=== PATIENT | male | born 1985 | race Caucasian/White ===

== ENCOUNTER 2016-03-04 05:11 | Emergency (ER) | payer BC, OTHER ==
[~2016-03-04] VITALS: Ht 182.9 cm; Wt 95.5 kg
[~2016-03-04 05:11] MED LIST: FRCT/ PO; HYDR-3983 PO; METOCLOPRAMIDE HCL 10 MG TAB PO SCH; TRAM-10 PO
[2016-03-04 05:17] VITALS: TEMP 36.6; Ht 182.9 cm; Wt 95.5 kg
[2016-03-04] MEDS ORDERED: DiphenhydrAMINE HCL 50 MG/ML VIAL IV STA (05:21)
[2016-03-04] MEDS ORDERED: KETOROLAC TROMETHAMINE 30 MG/ML VIAL IV STA (05:21)
[2016-03-04] MEDS ORDERED: METOCLOPRAMIDE HCL INJ 5 MG/ML 2 ML VIAL IV STA (05:21)
[2016-03-04] MEDS ORDERED: SODIUM CHLORIDE 0.9% 1000ML 1,000 ML IV STA (05:21)
[2016-03-04] MEDS ORDERED: METOCLOPRAMIDE HCL 10 MG TAB PO ONE (05:30)
[2016-03-04] MEDS ORDERED: DIVA500T3 PO (05:32)
[2016-03-04] MEDS ORDERED: PRD/1 PO (05:33)
[2016-03-04] MEDS ORDERED: CHOL1000 PO (05:33)
--- NOTE | 2016-03-04 06:16 | EMERGENCY ROOM VISIT NOTE ---
History First contact with patient: 05:14 Chief Complaint: HEADACHE Stated Complaint: MIGRAINE WITH VOMITING History of Present Illness The patient is a 31 year old male who presents to the Emergency Room with complaints of migraine. Patient saw the [place] neurology last month and started him on depakote and Imitrex. He describes the headache as throbbing, ranging in severity 7 out of 10 throughout the frontal region similar to prior. Normal imaging in the past. Patient denies chest pain, dyspnea, neck stiffness, fever , chills, sore throat, lightheadedness, abdominal pain, diarrhea, dizziness. Headache was slow in onset. No weakness. He tried Imitrex with minimal improvement. Past Medical/Surgical History Medical Problems: (1) Herniated disc (2) Migraines Family History No pertinent family history Social History Smoking Status: Never Smoker Alcohol Use: occasionally Marital Status: Housing Status: lives with significant other Occupation Status: employed Current/Historical Medications Scheduled Cholecalciferol (Vitamin D3), 5,000 UNITS PO DAILY Divalproex Sodium (Depakote Er), 750 MG PO DAILY Prednisone (Prednisone), Unknown Dose PO DIRECTED Scheduled PRN Acetamin/Butalbital/Caffeine (Fioricet), 2 TAB PO BID PRN for Migraine Hydrocodone/Acetaminophen 7.5MG/325MG (Bradford 7.5MG/325MG), 1 TAB PO Q6 PRN for Pain Allergies Coded Allergies: No Known Allergies (Unverified , 03/04/16) Physical Exam Vital Signs Date Time Temp Pulse Resp B/P Pulse Ox O2 Delivery O2 Flow Rate FiO2 03/04/16 05:17 36.6 69 16 139/92 96 Room Air Physical Exam VITALS: Vitals are noted on the nurse's note and reviewed by myself. Vital signs stable. GENERAL:pleasant patient, in no acute distress, nondiaphoretic, well-developed well-nourished. SKIN: The skin was without rashes, erythema, edema, or bruising. There is no tenting of the skin. Capillary reflex less than 2 seconds. HEAD: Normocephalic atraumatic. EARS: External auditory canals clear, tympanic membranes pearly sandhu without erythema or effusion bilaterally. EYES: Pupils equal round and reactive to light and accommodation. Conjunctivae without injection, sclerae without icterus. Extraocular movements intact. NOSE: Patent, turbinates without inflammation or discharge. No sinus tenderness. MOUTH: Mucous membranes moist. Pharynx without erythema or exudate. Uvula midline. Airway patent. Tongue does not deviate. NECK: Supple without nuchal rigidity. No lymphadenopathy. No thyromegaly. Cervical spine is nontender. No JVD. no meningeal signs HEART: Regular rate and rhythm without murmurs gallops or rubs. LUNGS: Clear to auscultation bilaterally without wheezes, rales or rhonchi. No dullness to percussion. No retractions or accessory muscle use. ABDOMEN: Positive bowel sounds x 4. Normal tympanic percussion. Soft, nontender, without masses or organomegaly. Ragsdale sign negative. No guarding or rebound tenderness. MUSCULOSKELETAL: No muscle atrophy, erythema, or edema noted. NEURO: Patient was alert and oriented to person place and time. Normal sensation to light and sharp touch. No focal neurological deficits. Medical Decision & Procedures Medications Administered Medications (Trade) Dose Ordered Sig/Mini Route Start Time Stop Time Status Last Admin Dose Admin Metoclopramide HCl (Reglan Inj) 10 mg NOW STAT IV 03/04/16 05:21 03/04/16 05:22 DC 03/04/16 05:37 10 MG Ketorolac Tromethamine (Toradol Inj) 30 mg NOW STAT IV 03/04/16 05:21 03/04/16 05:23 DC 03/04/16 05:38 30 MG Diphenhydramine HCl 25 mg 25 mg NOW STAT IV 03/04/16 05:21 03/04/16 05:23 DC 03/04/16 05:37 25 MG Sodium Chloride (Nss 1000ml) 1,000 ml @ 999 mls/hr Q1H1M STAT IV 03/04/16 05:21 03/04/16 06:21 03/04/16 05:37 999 MLS/HR ED Course Prior records/ancillary studies reviewed. Additional history obtained from family. Triage Nursing notes reviewed. The patient's history was concerning for headache. Differential diagnosis: Etiologies such as migraine headache, meningitis, sinusitis, CO exposure, ICH, SAH, infection, tumor, headache, sinus thrombosis, arterial dissection, as well as others were entertained. Physical examination findings: As above. Non-focal. ER treatment provided: toradol, reglan, benadryl, NSS On reassessment the patient felt better. Diagnostics interpreted by me: deferred This appears to be consistent with migraine. Patient is a long-standing history of migraines and symptoms seem similar. Patient felt much better after being medicated as above. Patient was advised to rest, stay well-hydrated and follow-up as scheduled with his family care and/or neurologist or here in the ER sooner for headache, fevers, vomiting, worsening signs or symptoms or as needed. Patient had no signs of meningitis on exam. Patient was well- appearing. Headache was slow in onset. By the evaluation outlined above emergent etiologies such as meningitis, sinusitis, CO exposure, ICH, SAH, infection, temporal arteritis, tumor, sinus thrombosis, arterial dissection, as well as others were deemed relatively unlikely. The pt informed about the findings as listed above. All questions were answered and pleased with the treatment. Return instructions were outlined and the patient was discharged in stable condition. Patient was given a home pack of Reglan as he is still awaiting his [facility] of this. Referral: The patient was referred back to their primary care physician for follow-up in 2 to 3 days for a recheck of the current condition. Medical Decision As above Impression Primary Impression: Migraine Departure Information Dispostion Home / Self-Care Condition GOOD Referrals Yessenia Mccracken C.R.NRhinaPRhina (PCP) Patient Instructions A Signature Page, My [facility] Additional Instructions DO NOT drive, drink alcohol, operate machinery, or perform dangerous activities today. You were given medications in the ER that can affect your ability to safely function or operate a vehicle. Rest today in a quiet, peaceful, dark environment and get a full 8-10 hrs of sleep tonight. Avoid loud noises, smoke/smoking, alcohol, bright lights, stress, or physical exertion today to minimize the chance the headache may return. Continue current medications. Ibuprofen(Motrin, Advil) may be used for fever or pain. Use 600mg every six hours as needed. Take with food. Avoid using more than 2400mg in a 24 hour period. Do not use 2400mg per day for more than three consecutive days without physician direction. Prolonged inappropriate use can lead to stomach upset or ulcers. (AND/OR) Acetaminophen(Tylenol) may be used for fever or pain. Use 1000mg every six hours as needed. Avoid using more than 3000mg in a 24 hour period. Return to the ER for passing out, worsening headache, vision problems, neck stiffness/pain, fevers, vomiting, worsening of your condition, or as needed. Follow up with your primary physician and/or a neurologist in 2-3 days for a recheck of your current condition.
[2016-03-04 06:38] VITALS: BP 134/97; PULSE 69; O2SAT 99
== END 2016-03-04 06:40 | disposition home or self-care (01) ==
LOC: C.EDB 05:12 → C.EDA 06:40
DX: G43.909 Migraine, unspecified, not intractable, without status migrainosus (principal); Z79.899 Other long term (current) drug therapy

== ENCOUNTER 2016-03-27 08:09 | Emergency (ER) | payer BC, OTHER ==
[~2016-03-27] VITALS: Ht 182.9 cm; Wt 94.6 kg
[~2016-03-27 08:09] MED LIST changes: +CHOL1000 PO; +DIVA500T3 PO; -METOCLOPRAMIDE HCL 10 MG TAB PO SCH; +PRD/1 PO; -TRAM-10 PO
[2016-03-27 08:17] VITALS: TEMP 36.8; Ht 182.9 cm; Wt 94.6 kg
[2016-03-27] MEDS ORDERED: METO10TA3 PO (08:29)
[2016-03-27] MEDS ORDERED: LDN500 PO (08:29)
[2016-03-27] MEDS ORDERED: SODIUM CHLORIDE 0.9% 1000ML 1,000 ML IV STA (08:44)
[2016-03-27] MEDS ORDERED: PROCHLORPERAZINE 5 MG/ML 2 ML VIAL IV STA (08:44)
[2016-03-27] MEDS ORDERED: KETOROLAC TROMETHAMINE 30 MG/ML VIAL IV STA (08:44)
[2016-03-27] MEDS ORDERED: ONDANSETRON INJ 2 MG/ML 2 ML VIAL IV STA (08:44)
[2016-03-27] MEDS ORDERED: DiphenhydrAMINE HCL 50 MG/ML VIAL IV STA (08:44)
--- NOTE | 2016-03-27 09:00 | EMERGENCY ROOM VISIT NOTE ---
History Report prepared by Deuce: Jd Mendez Under the Supervision of: Dr. Misty Paulino M.D. First contact with patient: 08:31 Chief Complaint: HEADACHE Stated Complaint: MIGRAINE, NAUSEA History of Present Illness The patient is a 31 year old male who presents to the Emergency Room with complaints of episodes of migraine headaches that started last night. He has a history of migraine headaches and usually gets one 2 or 3 times a week. He typically takes Imitrex every time he gets a migraine, but the [place] stopped giving the patient Imitrex recently. The patient had a migraine last night, and woke up with a similar headache this morning. He describes the pain as a sharp pain behind his right eye and he rates the pain as a 6 out of 10 in severity at worst. He has mild light sensitivity. The patient has not used any NSAIDS for these episodes because he was told not to take them since he was using them so frequently in the past. He denies any numbness, tingling, weakness, or vomiting. Source of History: patient Onset: Last night Position: head Symptom Intensity: migraine-like, 6/10 in severity at worst Quality: sharp Timing: other (episodes) Associated Symptoms: No nausea, No numbness (or tingling), No vomiting, No weakness Note: Associated symptoms: Mild light sensitivity. Review of Systems See HPI for pertinent positives & negatives. A total of 10 systems reviewed and were otherwise negative. Past Medical & Surgical Medical Problems: (1) Herniated disc (2) Migraines Family History No pertinent family history Social History Smoking Status: Never Smoker Alcohol Use: occasionally Marital Status: Housing Status: lives with significant other Occupation Status: employed Current/Historical Medications Scheduled Cholecalciferol (Vitamin D3), 5,000 UNITS PO DAILY Divalproex Sodium (Depakote Er), 750 MG PO DAILY Etodolac (Etodolac), 1 TAB PO DAILY Metoclopramide HCl (Metoclopramide HCl), 1 TAB PO DAILY Scheduled PRN Hydrocodone/Acetaminophen 7.5MG/325MG (Adger 7.5MG/325MG), 1 TAB PO Q6 PRN for Pain Ibuprofen (Ibuprofen), 800 TAB PO Q8 PRN for headache Metoclopramide (Reglan), 10 MG PO Q6H PRN for Migraine Allergies Coded Allergies: No Known Allergies (Unverified , 03/04/16) Physical Exam Vital Signs Date Time Temp Pulse Resp B/P Pulse Ox O2 Delivery O2 Flow Rate FiO2 03/27/16 11:21 78 17 134/75 97 03/27/16 11:14 78 17 134/75 97 Room Air 03/27/16 08:17 36.8 80 18 133/86 97 Room Air Physical Exam CONSTITUTIONAL: Mild painful distress. HEENT: No icterus, moist mucous membranes NECK: No meningismus, trachea is midline. CARDIOVASCULAR: Regular rate, normal perfusion RESPIRATORY: Unlabored breathing. Clear to auscultation. GASTROINTESTINAL: Non-tender GENITOURINARY: No flank tenderness MUSCULOSKELETAL: Full range of motion NEUROLOGIC: No acute gross focal deficits. PSYCHIATRIC: Normal affect SKIN: Normal for ethnicity. Medical Decision & Procedures Laboratory Results Test 03/27/16 09:23 Bedside Hemoglobin 15.0 g/dl (14.0-18.0) Bedside Hematocrit 44 % (42-52) Bedside Sodium 142 mEq/L (135-144) Bedside Potassium 4.0 mEq/L (3.3-5.0) Bedside Chloride 100 mEq/L (101-112) Bedside Total CO2 27 mEq/l (24-31) Anion Gap 19.0 mmol/L (16-25) Bedside Blood Urea Nitrogen 11 mg/dl (7-18) Bedside Creatinine 1.0 mg/dl (0.6-1.3) Bedside Glucose (other) 99 mg/dl (70-99) Bedside Ionized Calcium (Aileen) 1.19 mmol/l (1.12-1.32) Labs reviewed by ED physician. Medications Administered Medications (Trade) Dose Ordered Sig/Mini Route Start Time Stop Time Status Last Admin Dose Admin Diphenhydramine HCl (Benadryl Inj) 25 mg NOW STAT IV 03/27/16 08:44 03/27/16 08:50 DC 03/27/16 09:13 25 MG Prochlorperazine Edisylate 10 mg 10 mg NOW STAT IV 03/27/16 08:44 03/27/16 08:50 DC 03/27/16 09:13 10 MG Sodium Chloride (Nss 1000ml) 1,000 ml @ 0 mls/hr Q0M STAT IV 03/27/16 08:44 03/27/16 08:50 DC 03/27/16 09:11 0 MLS/HR Ondansetron HCl (Zofran Inj) 4 mg NOW STAT IV 03/27/16 08:44 03/27/16 08:50 DC 03/27/16 09:12 4 MG Ketorolac Tromethamine (Toradol Inj) 30 mg NOW STAT IV 03/27/16 08:44 03/27/16 08:50 DC 03/27/16 09:13 30 MG ED Course 0835: The medical student evaluated the patient in room A12B. 0844: Ordered Toradol Inj 30 mg IV, Zofran Inj 4 mg IV, NSS 1000 ml @ 0 mls/hr Wide Open IV, Compazine Inj 10 mg IV, Benadryl Inj 25 mg IV. 928: Past medical records reviewed. The patient was evaluated in room A12B. A complete history and physical examination was performed. The patient verbally expressed understanding and agreement of the treatment plan. The patient will be discharged. Medical Decision Differential diagnoses include: migraine. 31-year-old presents into the emergency department for evaluation of migraine headache consistent with prior episodes without focal neurologic deficits. Normally maintained on Imitrex as needed with prior intracranial imaging which is normal. Prior records reviewed and CT noted in 2014. Patient given Compazine, Toradol, Benadryl with resolution of symptoms. Impression Primary Impression: Migraine Scribe Attestation The scribe's documentation has been prepared under my direction and personally reviewed by me in its entirety. I confirm that the note above accurately reflects all work, treatment, procedures, and medical decision making performed by me. Departure Information Dispostion Home / Self-Care Prescriptions Ibuprofen (IBUPROFEN) 200 Mg Cap 800 TAB PO Q8 Y for headache, #20 TAB Prov: Misty Paulino MD 03/27/16 Metoclopramide (Reglan) 10 Mg Tab 10 MG PO Q6H Y for Migraine, #20 TAB Prov: Misty Paulino MD 03/27/16 Referrals No Doctor, Assigned (PCP) Forms HOME CARE DOCUMENTATION FORM, IMPORTANT VISIT INFORMATION Patient Instructions ED Headache Migraine, My [facility]
[2016-03-27 09:43] LABS: ISTAT IONIZED CALCIUM 1.19 mmol/l (1.12-1.32)
[2016-03-27] MEDS ORDERED: METO-157 PO (09:45)
[2016-03-27] MEDS ORDERED: IBUP1CAP9 PO (09:45)
[2016-03-27 11:21] VITALS: BP 134/75; PULSE 78; O2SAT 97
== END 2016-03-27 11:22 | disposition home or self-care (01) ==
LOC: C.EDB 08:12 → C.EDA 11:22
DX: G43.909 Migraine, unspecified, not intractable, without status migrainosus (principal); Z79.899 Other long term (current) drug therapy

== ENCOUNTER 2016-06-03 08:42 | Emergency (ER) | payer BC, OTHER ==
[~2016-06-03] VITALS: Ht 182.9 cm; Wt 92.1 kg
[~2016-06-03 08:42] MED LIST changes: -FRCT/ PO; +IBUP1CAP9 PO; +LDN500 PO; +METO-157 PO; +METO10TA3 PO; -PRD/1 PO
[2016-06-03 08:46] VITALS: TEMP 36.5; Ht 182.9 cm; Wt 92.1 kg
[2016-06-03] MEDS ORDERED: SUMA6INJ (08:54)
[2016-06-03] MEDS ORDERED: DiphenhydrAMINE HCL 50 MG/ML VIAL IV STA (08:59)
[2016-06-03] MEDS ORDERED: ONDANSETRON INJ 2 MG/ML 2 ML VIAL IV STA (08:59)
[2016-06-03] MEDS ORDERED: KETOROLAC TROMETHAMINE 30 MG/ML VIAL IV STA (08:59)
[2016-06-03] MEDS ORDERED: SODIUM CHLORIDE 0.9% 1000ML 2,000 ML IV STA (08:59)
[2016-06-03] MEDS ORDERED: PROCHLORPERAZINE INJ 5 MG in SYRINGE 4 ML IV STA (08:59)
[2016-06-03] MEDS ORDERED: PROCHLORPERAZINE 5 MG/ML 2 ML VIAL ONE (09:14)
[2016-06-03 09:21] LABS: BASO % 0.3 %; BASO ABS # 0.02 K/uL (0-0.2); COMPLETE YES; HEMATOCRIT 45.1 % (42-52); IG% 0.2 %; LYMPH % 26.4 %; LYMPH ABS # 1.66 K/uL (1.2-3.4); MEAN CELL VOLUME 89.8 fL (80-100); MEAN CORPUSCULAR HEMOGLOBIN 31.1 pg (25-34); MEAN CORPUSCULAR HGB CONC 34.6 g/dl (32-36); MEAN PLATELET VOLUME 9.8 fL (7.4-10.4); MONO % 8.3 %; NEUT % 60.8 %; PLATELET COUNT 239 K/uL (130-400); RED BLOOD COUNT 5.02 M/uL (4.7-6.1); WHITE BLOOD COUNT 6.29 K/uL (4.8-10.8)
[2016-06-03 09:38] LABS: BLOOD UREA NITROGEN 11 mg/dl (7-18); BUN/CREATININE RATIO 8.8 (10-20); CARBON DIOXIDE 28 mmol/L (21-32); CHLORIDE 106 mmol/L (98-107); GLUCOSE 139 mg/dl (70-99); POTASSIUM 3.8 mmol/L (3.5-5.1); SODIUM 142 mmol/L (136-145)
--- NOTE | 2016-06-03 09:42 | DIAGNOSTIC IMAGING REPORT ---
HEAD CT NONCONTRAST CT DOSE: 537.48 mGy.cm HISTORY: Headache MENCHACA TECHNIQUE: Multiaxial CT images of the head were performed without the use of intravenous contrast. Comparison: 05/21/2014 Findings: The paranasal sinuses and mastoid air cells are clear. The calvarium and skull base are intact. The ventricles and sulci are within normal limits. There is no mass, hematoma, midline shift, or acute infarct. Impression: No acute intracranial abnormality. Electronically signed by: Manny Rascon M.D. 06/03/2016 9:40 AM Dictated Date/Time: 06/03/2016 9:38 AM
[2016-06-03 09:43] LABS: ALKALINE PHOSPHATASE 56 U/L (45-117); ALT/SGPT 86 U/L (12-78); AST/SGOT 141 U/L (15-37)
[2016-06-03 10:28] VITALS: BP 138/87; PULSE 60; O2SAT 98
--- NOTE | 2016-06-03 14:17 | EMERGENCY ROOM VISIT NOTE ---
History Report prepared by Deuce: Elisabeth Ruvalcaba Under the Supervision of: Dr. Cecilio Foley D.O. First contact with patient: 08:48 Chief Complaint: HEADACHE Stated Complaint: MIGRAINE, FEVER, VOMITING History of Present Illness The patient is a 31 year old male who presents to the Emergency Room with complaints of persistent headache starting 0330 last night. He has a history of migraines. This headache had a gradual onset and is worse than his typical migraine. The pain is present behind his eyes which is typical. He reports sensitivity to light, nausea, vomiting, and diaphoresis. He usually experiences nausea and vomiting with his migraines, but not diaphoresis. He denies any fevers greater than 100.4. Pt denies change in vision, chest pain, shortness of breath, abdominal pain, diarrhea, and pain with urination. No weakness or numbness in his arms or legs. No trouble ambulating. No recent trauma. Source of History: patient Onset: 0330 last night Position: head Quality: ache Timing: other (persistent) Associated Symptoms: + diaphoresis, + nausea, + vomiting, No SOB, No abdominal pain, No chest pain, No diarrhea, No urinary symptoms Note: Pt reports sensitivity to light. Pt denies vision changes. Review of Systems See HPI for pertinent positives & negatives. A total of 10 systems reviewed and were otherwise negative. Past Medical & Surgical Medical Problems: (1) Herniated disc (2) Migraines Family History No pertinent family history Social History Smoking Status: Never Smoker Alcohol Use: occasionally Marital Status: Housing Status: lives with significant other Occupation Status: employed Current/Historical Medications Scheduled Cholecalciferol (Vitamin D3), 5,000 UNITS PO DAILY Divalproex Sodium (Depakote Er), 750 MG PO DAILY Etodolac (Etodolac), 1 TAB PO DAILY Metoclopramide HCl (Metoclopramide HCl), 1 TAB PO DAILY Scheduled PRN Metoclopramide (Reglan), 10 MG PO Q6H PRN for Migraine Miscellaneous Medications Sumatriptan Succinate (Imitrex) Allergies Coded Allergies: No Known Allergies (Unverified , 06/03/16) Physical Exam Vital Signs Date Time Temp Pulse Resp B/P Pulse Ox O2 Delivery O2 Flow Rate FiO2 06/03/16 10:28 60 16 138/87 98 Room Air 4/11/17 08:46 36.5 86 18 149/89 98 Room Air Physical Exam GENERAL: Sitting up in bed, holding right forehead, disheveled, in mild distress. EYE EXAM: normal conjunctiva, PERRL and EOM's intact EARS: TMs clear bilaterally. OROPHARYNX: no exudate, no erythema, lips, buccal mucosa, and tongue normal and mucous membranes are moist NECK: supple, no nuchal rigidity, no adenopathy, non-tender. Negative Brudzinski 's. LUNGS: Clear to auscultation. Normal chest wall mechanics HEART: no murmurs, S1 normal and S2 normal ABDOMEN: abdomen soft, non-tender, normo-active bowel sounds, no masses, no rebound or guarding. BACK: Back is symmetrical on inspection and there is no deformity, no midline tenderness, no CVA tenderness. SKIN: no rashes and no bruising UPPER EXTREMITIES: upper extremities are grossly normal. LOWER EXTREMITIES: No pitting edema. NEURO EXAM: Normal sensorium, cranial nerves II-XII intact, normal speech, no weakness of arms, no weakness of legs. No drift. Finger to nose intact. Gross sensation intact. Medical Decision & Procedures ER Provider Diagnostic Interpretation: Radiology results as stated below per my review and the radiologist's interpretation: HEAD CT NONCONTRAST CT DOSE: 537.48 mGy.cm HISTORY: Headache MENCHACA TECHNIQUE: Multiaxial CT images of the head were performed without the use of intravenous contrast. Comparison: 05/21/2014 Findings: The paranasal sinuses and mastoid air cells are clear. The calvarium and skull base are intact. The ventricles and sulci are within normal limits. There is no mass, hematoma, midline shift, or acute infarct. Impression: No acute intracranial abnormality. Electronically signed by: aMnny Rascon M.D. 06/03/2016 9:40 AM Dictated Date/Time: 06/03/2016 9:38 AM Laboratory Results 06/03/16 09:10 Red Blood Count 5.02, Mean Corpuscular Volume 89.8, Mean Corpuscular Hemoglobin 31.1, Mean Corpuscular Hemoglobin Concent 34.6, Mean Platelet Volume 9.8, Neutrophils (%) (Auto) 60.8, Lymphocytes (%) (Auto) 26.4, Monocytes (%) (Auto) 8.3, Eosinophils (%) (Auto) 4.0, Basophils (%) (Auto) 0.3, Neutrophils # (Auto) 3.83, Lymphocytes # (Auto) 1.66, Monocytes # (Auto) 0.52, Eosinophils # (Auto) 0.25, Basophils # (Auto) 0.02 06/03/16 09:10 Test 06/03/16 09:10 White Blood Count 6.29 K/uL (4.8-10.8) Red Blood Count 5.02 M/uL (4.7-6.1) Hemoglobin 15.6 g/dL (14.0-18.0) Hematocrit 45.1 % (42-52) Mean Corpuscular Volume 89.8 fL (80-100) Mean Corpuscular Hemoglobin 31.1 pg (25-34) Mean Corpuscular Hemoglobin Concent 34.6 g/dl (32-36) Platelet Count 239 K/uL (130-400) Mean Platelet Volume 9.8 fL (7.4-10.4) Neutrophils (%) (Auto) 60.8 % Lymphocytes (%) (Auto) 26.4 % Monocytes (%) (Auto) 8.3 % Eosinophils (%) (Auto) 4.0 % Basophils (%) (Auto) 0.3 % Neutrophils # (Auto) 3.83 K/uL (1.4-6.5) Lymphocytes # (Auto) 1.66 K/uL (1.2-3.4) Monocytes # (Auto) 0.52 K/uL (0.11-0.59) Eosinophils # (Auto) 0.25 K/uL (0-0.5) Basophils # (Auto) 0.02 K/uL (0-0.2) RDW Standard Deviation 42.3 fL (36.4-46.3) RDW Coefficient of Variation 13.0 % (11.5-14.5) Immature Granulocyte % (Auto) 0.2 % Immature Granulocyte # (Auto) 0.01 K/uL (0.00-0.02) Anion Gap 8.0 mmol/L (3-11) Est Creatinine Clear Calc Drug Dose 89.6 ml/min Estimated GFR () 83.7 Estimated GFR (Non- 72.2 BUN/Creatinine Ratio 8.8 (10-20) Calcium Level 9.0 mg/dl (8.5-10.1) Total Bilirubin 0.4 mg/dl (0.2-1) Direct Bilirubin < 0.1 mg/dl (0-0.2) Aspartate Amino Transf (AST/SGOT) 141 U/L (15-37) Alanine Aminotransferase (ALT/SGPT) 86 U/L (12-78) Alkaline Phosphatase 56 U/L (45-117) Total Protein 7.3 gm/dl (6.4-8.2) Albumin 4.0 gm/dl (3.4-5.0) Laboratory results per my review. Medications Administered Medications (Trade) Dose Ordered Sig/Mini Route Start Time Stop Time Status Last Admin Dose Admin Sodium Chloride (Nss 1000ml) 2,000 ml @ 999 mls/hr Q2H1M STAT IV 06/03/16 08:59 06/03/16 10:54 DC 06/03/16 09:12 999 MLS/HR Ondansetron HCl (Zofran Inj) 4 mg NOW STAT IV 06/03/16 08:59 06/03/16 09:07 DC 06/03/16 09:11 4 MG Ketorolac Tromethamine (Toradol Inj) 30 mg NOW STAT IV 06/03/16 08:59 06/03/16 09:07 DC 06/03/16 09:15 30 MG Diphenhydramine HCl (Benadryl Inj) 50 mg NOW STAT IV 06/03/16 08:59 06/03/16 09:07 DC 06/03/16 09:13 50 MG Prochlorperazine Edisylate (Compazine Inj) 10 mg STK-MED ONCE .ROUTE 06/03/16 09:14 06/03/16 09:15 DC 06/03/16 09:12 5 MG ED Course ED COURSE: Vital signs were reviewed and showed normal vitals. The patients medical record was reviewed The above diagnostic studies were performed and reviewed. ED treatments and interventions as stated above. 0851: The patient was evaluated in room A10. A complete history and physical examination was performed. 0859: Benadryl Inj 50 mg IV, Toradol Inj 30 mg IV, Zofran Inj 4 mg IV, NSS 2000 ml @ 999 mls/hr IV. 0914: Compazine Inj 10 mg IV. 1018: Upon reevaluation, the patient's headache has resolved. I discussed my findings with the patient. I discussed the risks and benefits of a lumbar puncture. He understands and declines the lumbar puncture. His at bedside agrees. He understands and agrees with the treatment plan. Based on the patients age, coexisting illnesses, exam and lab findings the decision to treat as an outpatient was made. The patient remained stable while under my care. The patient appeared well at the time of discharge. Medical Decision Differential Diagnosis includes but is not limited to headache, tension headache , cluster headache, migraine, subarachnoid hemorrhage, meningitis, mass, central venous thrombus, concussion, trauma and epidural/subdural hemorrhage. Patient is a 31-year-old male who presents the ER for headache. This came on gradually and progressively worsened. No fevers. He does have a history of migraines but notes that this feels worse. CT head was negative. CBC and BMP were unremarkable. Vitals were unremarkable. He has been afebrile. IV was established and he was given IV Compazine, Benadryl, Toradol and normal saline. He had resolution of his headache. At this time I discussed performing a lumbar puncture to rule out SAH or meningitis although he has no fevers. He declined and both him and his understood the risk and benefits of this. Following this he was discharged to follow-up with his primary care doctor in the next 24 hours. He was discharged following informed refusal of care. Discussed with Pt concerning signs and symptoms to watch out for. Pt was instructed to follow up with their PCP and discussed with the patient their option to return to the ED at anytime for persistent or worsening symptoms. The appropriate anticipatory guidance and out-patient management, including indications for return to the emergency department, were explained at length to the patient and understood. Impression Primary Impression: Headache Additional Impression: Nausea and vomiting Scribe Attestation The scribe's documentation has been prepared under my direction and personally reviewed by me in its entirety. I confirm that the note above accurately reflects all work, treatment, procedures, and medical decision making performed by me. Departure Information Dispostion Home / Self-Care Referrals Yessenia Mccracken C.R.N.P. (PCP) Forms HOME CARE DOCUMENTATION FORM, IMPORTANT VISIT INFORMATION Patient Instructions Headache Pain, My [facility] Additional Instructions Please follow up with your primary care doctor with in the next 24 hours. Any worsening of your symptoms, please return to the ED immediately. This includes weakness or numbness in arms or legs, change in vision, worsening or recurrence of a headache, fevers greater than 100.4 or any other concerning signs or symptoms from your stand point. Please not drive, work, operate heavy machinery for the next 12 hours with the medications given in the ER. Problem Qualifiers Primary Impression: Headache Headache type: unspecified Headache chronicity pattern: acute headache Intractability: not intractable Qualified Codes: R51 - Headache Additional Impression: Nausea and vomiting Vomiting type: unspecified Vomiting Intractability: non-intractable Qualified Codes: R11.2 - Nausea with vomiting, unspecified
== END 2016-06-03 10:33 | disposition home or self-care (01) ==
LOC: C.EDB 08:44 → C.EDA 10:33
DX: R51 Headache (principal); R11.2 Nausea with vomiting, unspecified

== ENCOUNTER 2017-03-04 11:16 | Emergency (ER) | payer OTHER ==
[~2017-03-04] VITALS: Ht 182.9 cm; Wt 100.0 kg
[~2017-03-04 11:16] MED LIST changes: -HYDR-3983 PO; -IBUP1CAP9 PO; -METO-157 PO; +SUMA6INJ
[2017-03-04 11:23] VITALS: TEMP 36.9; Ht 182.9 cm; Wt 100.0 kg
[2017-03-04] MEDS ORDERED: KETOROLAC TROMETHAMINE 60 MG/2 ML VIAL IM STA (11:45)
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
--- NOTE | 2017-03-04 12:26 | DIAGNOSTIC IMAGING REPORT ---
PELVIS 1 OR 2 VIEW ROUTINE CLINICAL HISTORY: bilateral pelvis pain/low back pain pain COMPARISON: None. DISCUSSION: The bones and joint spaces appear intact. There is no evidence of fracture, dislocation or bony disease. There is no evidence for soft tissue swelling. IMPRESSION: Negative study. The above report was generated using voice recognition software. It may contain grammatical, syntax or spelling errors. Electronically signed by: Manny Rascon M.D. 03/04/2017 12:24 PM Dictated Date/Time: 03/04/2017 12:22 PM
[2017-03-04] MEDS ORDERED: BTLAI SC (12:30)
[2017-03-04] MEDS ORDERED: DULO60CA44 PO (12:30)
[2017-03-04] MEDS ORDERED: CHOL400T (12:30)
[2017-03-04] MEDS ORDERED: ONDA4TAB46 PO (12:30)
[2017-03-04] MEDS ORDERED: SUMA6INJ (12:30)
[2017-03-04] MEDS ORDERED: CYCL5TAB PO (12:30)
[2017-03-04] MEDS ORDERED: LEVO25TA PO (12:30)
--- NOTE | 2017-03-04 12:31 | DIAGNOSTIC IMAGING REPORT ---
LUMBAR SPINE 5 VIEWS CLINICAL HISTORY: Low back pain. FINDINGS: 5 views of the lumbar spine are correlated with abdominal CT dated 07/08/2015. The skeletal structures are well mineralized. There is no radiographic evidence of fracture or malalignment. Vertebral body height and alignment are maintained. The transverse and spinous processes are intact. There is no evidence of spondylolysis. The intervertebral disc spaces are well-maintained. The visualized bony pelvis appears intact. There is a nonobstructed abdominal bowel gas pattern. Moderate constipation is observed. IMPRESSION: Unremarkable radiographic evaluation of the lumbosacral spine. Electronically signed by: Ciaran Jones M.D. 03/04/2017 12:30 PM Dictated Date/Time: 03/04/2017 12:29 PM
[2017-03-04] MEDS ORDERED: METH4PAK PO (12:45)
[2017-03-04 12:58] VITALS: BP 148/102; PULSE 107; O2SAT 96
== END 2017-03-04 13:07 | disposition home or self-care (01) ==
LOC: C.EDB 11:18 → C.EDD 13:07
DX: S39.012A Strain of muscle, fascia and tendon of lower back, initial encounter (principal); K59.00 Constipation, unspecified; G43.909 Migraine, unspecified, not intractable, without status migrainosus; E03.9 Hypothyroidism, unspecified; X58.XXXA Exposure to other specified factors, initial encounter

== ENCOUNTER 2017-05-11 10:25 | Emergency (ER) | payer OTHER ==
[~2017-05-11] VITALS: Ht 182.9 cm; Wt 96.1 kg
[~2017-05-11 10:25] MED LIST changes: +BTLAI SC; -CHOL1000 PO; +CHOL400T; +CYCL5TAB PO; -DIVA500T3 PO; +DULO60CA44 PO; -LDN500 PO; +LEVO25TA PO; -METO10TA3 PO; +ONDA4TAB46 PO
[2017-05-11 10:27] VITALS: TEMP 36.7; Ht 182.9 cm; Wt 96.1 kg
[2017-05-11] MEDS ORDERED: PROCHLORPERAZINE 5 MG/ML 2 ML VIAL IV STA (11:30)
[2017-05-11] MEDS ORDERED: SODIUM CHLORIDE 0.9% 1000ML 1,000 ML IV STA (11:30)
[2017-05-11] MEDS ORDERED: ONDANSETRON INJ 2 MG/ML 2 ML VIAL IV STA (11:30)
[2017-05-11] MEDS ORDERED: KETOROLAC TROMETHAMINE 30 MG/ML VIAL IV STA (11:30)
[2017-05-11] MEDS ORDERED: DiphenhydrAMINE HCL 50 MG/ML VIAL IV STA (11:30)
[2017-05-11] MEDS ORDERED: OXYC1TAB3 PO (11:46)
[2017-05-11 12:28] VITALS: BP 131/81; PULSE 84; O2SAT 96
[2017-05-11] MEDS ORDERED: METH4PAK PO (12:44)
--- NOTE | 2017-05-11 12:44 | EMERGENCY ROOM VISIT NOTE ---
ED Visit Note First contact with patient: 11:14 CHIEF COMPLAINT: Migraine headache HISTORY OF PRESENT ILLNESS: This 32-year-old male patient presented to the emergency department, ambulatory, with a gradual onset of a severe generalized headache that started 5 days ago. The patient states the migraine is similar to their typical migraines. There has been associated photophobia, phonophobia, nausea and vomiting. The patient denies fever or chills recently, and there is no weakness or numbness of the extremities. There is no difficulty with speech or vision. No trauma to the head and no neck pain. The pain is severe, constant , and it is slowly increasing in severity. The patient rates the pain as sharp, pulsating and 6/10, but increases to 10/10 when he moves. The patient has taken his normal Imitrex injections without relief. This is not the worst headache of the life and is similar to previous migraines. Previous imaging studies of the brain have been normal. The patient does get Botox injections, however he is overdue for his injection at this time. REVIEW OF SYSTEMS: A 10 system review of systems was performed with positives and pertinent negatives listed in the history of present illness. All other systems were reviewed and are negative. ALLERGIES: None MEDICATIONS: Synthroid, vitamin D, Imitrex, Flexeril, Cymbalta, Botox injections , Naprosyn, oxycodone PMH: Migraines, chronic back pain SOCIAL HISTORY: The patient lives locally with family. He denies drug, alcohol , tobacco use. PHYSICAL EXAM: Vital Signs: Reviewed Nurse's notes, vital signs stable. GENERAL : This is a 32-year-old white male, who appears in pain, but non toxic in appearance and in no acute distress. MENTAL STATUS: Alert, oriented, and coherent. HEENT: Normocephalic. PERRLA. EOMI. Nares patent without nuchal rigidity. Tympanic membranes pearly sandhu without erythema or effusion bilaterally. Mucous membranes moist. NECK: Supple, no nuchal rigidity, nontender, no lymphadenopathy. HEART: Regular rhythm and normal rate without murmurs, ectopy, gallops, or rubs. LUNGS: Clear to auscultation bilaterally without wheezes, rales or rhonchi. No dullness to percussion. No accessory muscle use. No retractions. SKIN: Normal. NEUROLOGICAL: Pupils are round, equal and react to light. The optic fundi are normal and the discs are flat. The patient moves all extremities well and the gait is normal. EMERGENCY DEPARTMENT COURSE: I examined the patient. IV access obtained. The patient has been seen here in the past for migraines. At that time, he was given 4 mg Zofran, 30 mg Toradol, 10 mg Compazine, 50 mg diphenhydramine, and 1 L normal saline solution with significant improvement in his symptoms. The patient was given those medications again. He was reassessed, and is now experiencing 0/10 pain. The patient will be given a prescription for Medrol Dosepak in the case that his migraine returns. Discharge instructions reviewed , the patient was discharged home in good condition with his driving. I attest that I have personally reviewed the patient's current medication list. Patient was found to have normal blood pressure on screening and does not require follow-up. The differential diagnosis includes acute intracranial bleed, meningitis, encephalitis, mass or mass effect, sinusitis, infection, tumor, headache, temporal arteritis and carbon monoxide exposure, and migraine. DIAGNOSIS: Migraine headache Problem List Medical Problems: (1) Herniated disc Status: Chronic (2) Migraines Status: Chronic Current/Historical Medications Scheduled Botulinum Toxin Type A (Botox), SC Q3MO Duloxetine Hcl (Cymbalta), 1 CAP PO DAILY Levothyroxine Sodium (Synthroid), 1 TAB PO DAILY Methylprednisolone (Medrol Dosepak), 0 PO DAILY Scheduled PRN Cyclobenzaprine Hcl (Flexeril), 1 TAB PO HS PRN for Headache Ondansetron Hcl (Zofran), 4 MG PO for Nausea Oxycodone Ir (Roxicodone Ir), 5 MG PO Q4H PRN for Severe Pain Miscellaneous Medications Cholecalciferol (Vitamin D) Sumatriptan Succinate (Imitrex) Allergies Coded Allergies: No Known Allergies (Unverified , 05/11/17) Vital Signs Date Time Temp Pulse Resp B/P (MAP) Pulse Ox O2 Delivery O2 Flow Rate FiO2 05/11/17 12:28 84 131/81 96 Room Air 05/11/17 10:27 36.7 92 20 126/82 96 Room Air Medications Administered Medications (Trade) Dose Ordered Sig/Mini Route Start Time Stop Time Status Last Admin Dose Admin Ketorolac Tromethamine (Toradol Inj) 30 mg NOW STAT IV 05/11/17 11:30 05/11/17 11:32 DC 05/11/17 11:46 30 MG Ondansetron HCl (Zofran Inj) 4 mg NOW STAT IV 05/11/17 11:30 05/11/17 11:32 DC 05/11/17 11:45 4 MG Diphenhydramine HCl (Benadryl Inj) 50 mg NOW STAT IV 05/11/17 11:30 05/11/17 11:32 DC 05/11/17 11:46 50 MG Prochlorperazine Edisylate (Compazine Inj) 10 mg NOW STAT IV 05/11/17 11:30 05/11/17 11:32 DC 05/11/17 11:46 10 MG Sodium Chloride 1,000 ml @ 999 mls/hr Q1H1M STAT IV 05/11/17 11:30 05/11/17 12:30 DC 05/11/17 11:36 999 MLS/HR Departure Information Impression Primary Impression: Migraine Dispostion Home / Self-Care Condition GOOD Prescriptions Methylprednisolone (MEDROL DOSEPAK) 4 Mg Kevin 0 PO DAILY, #1 PKT Prov: Bhakti Lee PA-C 05/11/17 Referrals Alpesh Vasquez D.ORhina (PCP) Patient Instructions ED Headache Migraine, [facility] Additional Instructions DO NOT drive, drink alcohol, operate machinery, or perform dangerous activities today. You were given medications in the ER that can affect your ability to safely function or operate a vehicle. Rest today in a quiet, peaceful, dark environment and get a full 8-10 hrs of sleep tonight. Avoid loud noises, smoke/smoking, alcohol, bright lights, stress, or physical exertion today to minimize the chance the headache may return. Continue current medications as prescribed. You have been prescribed a Medrol Dosepak to be taken if migraine returns. This is a steroid which will help decrease your inflammation, redness, and itch. Take the medicine as prescribed. Take the ENTIRE 6 day course of the steroids. Do not take NSAIDs while taking steroids. Ibuprofen(Motrin, Advil) may be used for fever or pain. Use 600mg every six hours as needed. Take with food. Avoid using more than 2400mg in a 24 hour period. Do not use 2400mg per day for more than three consecutive days without physician direction. Prolonged inappropriate use can lead to stomach upset or ulcers. Do not take NSAIDs while taking steroids. (AND/OR) Acetaminophen(Tylenol) may be used for fever or pain. Use 1000mg every six hours as needed. Avoid using more than 3000mg in a 24 hour period. Return to the ER for passing out, worsening headache, vision problems, neck stiffness/pain, fevers, vomiting, worsening of your condition, or as needed. Follow up with your primary physician in 2-3 days for a recheck of your current condition. Problem Qualifiers Primary Impression: Migraine Migraine type: with aura Status migrainosus presence: with status migrainosus Intractability: intractable Qualified Codes: G43.111 - Migraine with aura, intractable, with status migrainosus
== END 2017-05-11 12:52 | disposition home or self-care (01) ==
LOC: C.EDB 10:25
DX: G43.111 Migraine with aura, intractable, with status migrainosus (principal); M51.16 Intervertebral disc disorders with radiculopathy, lumbar region; G89.29 Other chronic pain

== ENCOUNTER → 2017-06-03 | Outpatient (CLI) | payer OTHER ==
[~2017-06-03] MED LIST changes: +CAND32TA2 PO; +GADAVIST IV PRN; +NAPR-1169 PO; +OXYC1TAB3 PO; +PROC1TAB5 PO
--- NOTE | 2017-06-03 09:28 | DIAGNOSTIC IMAGING REPORT ---
Brain MRI WITH AND WITHOUT CONTRAST HISTORY: CHRONIC MIGRAINE W/O AURA, WORSENING MENCHACA TECHNIQUE: Multiplanar multisequence MRI of the brain was performed both before and after the intravenous administration of contrast. COMPARISON STUDY: Head CT 05/21/2014. FINDINGS: There are no areas of restricted diffusion to suggest acute infarction. The midline structures are intact. The paranasal sinuses are clear. The mastoid air cells are clear. The ventricles and sulci are within normal limits for age. There is no mass, hematoma, midline shift. The major vascular flow-voids at the skull base are well maintained. Postcontrast sequences show no areas of abnormal enhancement. IMPRESSION: No acute intracranial abnormality. Electronically signed by: Jimbo Otero M.D. 06/03/2017 9:26 AM Dictated Date/Time: 06/03/2017 9:17 AM
== END | disposition home or self-care (01) ==
LOC: C.MRIBC 08:26
PROVIDERS: ATTEND Psychiatry & Neurology Neurology
DX: G43.709 Chronic migraine without aura, not intractable, without status migrainosus (principal)

== ENCOUNTER 2017-06-28 17:42 | Emergency (ER) | payer OTHER ==
[~2017-06-28 17:42] MED LIST changes: -BTLAI SC; +CAND1TAB17 PO; -CAND32TA2 PO; -CYCL5TAB PO; -DULO60CA44 PO; -GADAVIST IV PRN; -ONDA4TAB46 PO; -SUMA6INJ; +SUMA6INJ PO
== END 2017-06-28 17:55 | disposition left against medical advice (07) ==
LOC: C.EDB 17:42
DX: G43.909 Migraine, unspecified, not intractable, without status migrainosus (principal); Z53.21 Procedure and treatment not carried out due to patient leaving prior to being seen by health care provider

== ENCOUNTER → 2017-06-29 | Day surgery (SDC) | payer OTHER ==
[2017-06-12 12:23] VITALS: Ht 182.9 cm; Wt 95.5 kg
[~2017-06-29] VITALS: Ht 182.9 cm; Wt 95.5 kg
[~2017-06-29] MED LIST changes: +BUPIVACAINE 0.25% 2.5MG/ML PF 10 ML VIAL ONE; +LIDOCAINE HCL 1% MPF 5 ML VIAL ONE; +PROC10TA PO; -PROC1TAB5 PO
--- NOTE | 2017-06-29 15:08 | History & Physical Bridge - SC ---
H&P Re-Evaluation Bridge Note: I have examined the patient, reviewed the History & Physical and in the interval since the performance of the History & Physical I have noted the following changes of clinical significance: No changes noted
--- NOTE | 2017-06-29 15:33 | [facility] Post Operative Brief Note ---
Immediate Operative Summary Operative Date June 29, 2017. Pre-Operative Diagnosis CHRONIC LOW BACK PAIN Post-Operative Diagnosis CHRONIC LOW BACK PAIN Procedure(s) Performed BILATERAL L2-[address] Geeta JUNIOR Service Planner Surgeon(s) NONE Estimated Blood Loss NONE Findings Consistent with Post-Op Diagnosis Specimens NA Drains None Anesthesia Type Local Complication(s) none Disposition Disposition:
--- NOTE | 2017-06-29 15:34 | Discharge Instructions ---
Discharge Instructions Date of Service June 29, 2017. Visit Reason for Visit: Low Back Pain Discharge Discharge Diagnosis / Problem: low back pain Discharge Goals Goal(s): Decrease discomfort, Improve function Activity Recommendations Activity Limitations: resume your previous activity Anesthesia . Post Anesthesia Instructions: If you have had General Anesthesia or IV Sedation: * Do not drive today. * Resume driving when surgeon permits. * Do not make important decisions or sign legal documents today. * Call surgeon for: 1. Temperature elevations greater than 101 degrees F. 2. Uncontrollable pain. 3. Excessive bleeding. 4. Persistent nausea and vomiting. 5. Medication intolerance (nausea, vomiting or rash). * For nausea and vomiting use only clear liquids such as: tea, soda, bouillon until nausea subsides, then gradually increase diet as tolerated. * If you have any concerns or questions, call your surgeon's office. If physician is unavailable and it is an emergency, call 911 or go to the nearest emergency room. . Diet Recommendations Recommended Home Diet: resume previous diet Procedures Procedures Performed: BILATERAL L2-3 MEDIAL BRANCH BLOCK Pending Studies Studies pending at discharge: no Medical Emergencies . Who to Call and When: Medical Emergencies: If at any time you feel your situation is an emergency, please call 911 immediately. . Non-Emergent Contact Non-Emergency issues call your: Specialist . . "Provider Documentation" section prepared by Ferny Lewis. .
[2017-06-29 15:35] VITALS: TEMP 37.4
[2017-06-29 16:01] VITALS: BP 128/85; PULSE 90; O2SAT 96
--- NOTE | 2017-06-29 16:08 | OPERATIVE REPORT ---
DATE OF OPERATION: 06/29/2017 CHIEF COMPLAINT: Chronic low back pain, L2-L3 facet arthropathy. POSTOPERATIVE DIAGNOSES: Chronic low back pain, L2-L3 facet arthropathy. PROCEDURE: Bilateral L2-L3 medial branch blocks under fluoroscopic guidance. INDICATIONS: The patient is a 32-year-old white male who has had chronic low back pain for 7 years after he was injured in [place] in 2010. It is axial in nature, improves with sitting, worse with standing and I was able to extend his back back. It is felt to be a facet problem. He presents today for diagnostic blocks. PHYSICAL EXAMINATION: A pleasant male, seated comfortably. He is point tender to palpation in the 2-3 facet areas which are worse with extension and rotation, no issues with flexion. He is without any focal weakness. Normal lower extremity strength. He had intact distal sensation at L4, L5, S1. Maneuvers negative for seated straight leg raises. CONSENT: Verbal and written consent was obtained from the patient. Risks and benefits were reviewed. Risks include but are not limited to infection, allergic reaction and wishes to proceed. DESCRIPTION OF PROCEDURE: The patient was taken back to the special procedures room of the [facility] where he was maintained in a prone position. Backside was cleansed with Betadine x3 and a dry sterile dressing was applied. Fluoroscope was used to identify the L2 transverse process and the L3 transverse process on the left side. The overlying skin was anesthetized with 0.25 mL of lidocaine 1% with 25 gauge 1.5-inch needle. A 25 gauge 3.5 inch needle was then directed contacting the junction of each of these bones and injecting with 1 mL of bupivacaine 0.25% at each site. The right L2 transverse process junction and the right L3 transverse process junction were fluoroscopically identified. The overlying skin was anesthetized with 0.25 mL of lidocaine 1% 25 gauge 1.5-inch needle. A 25 gauge 3.5 inch spinal needle was directed down at each site contacting bone and injected after negative aspiration with 1 mL of bupivacaine 0.25% at each site. Injections were well-tolerated. DISPOSITION: 1. The patient is taken out into the discharge recovery area where he will be discharged home once discharge criteria have been met. 2. Follow up in the [facility] office in 4 weeks' time. I attest to the content of the Intraoperative Record and any orders documented therein. Any exception s are noted below.
== END | disposition home or self-care (01) ==
LOC: X.SURG 14:16
PROVIDERS: ATTEND Physical Medicine & Rehabilitation
DX: M54.5 Low back pain (principal); M47.816 Spondylosis without myelopathy or radiculopathy, lumbar region; G89.29 Other chronic pain; E78.5 Hyperlipidemia, unspecified; E03.9 Hypothyroidism, unspecified

== ENCOUNTER 2017-09-26 19:14 | Emergency (ER) | payer OTHER ==
[~2017-09-26] VITALS: Ht 182.9 cm; Wt 97.6 kg
[~2017-09-26 19:14] MED LIST changes: +BOTOX INJECTION; -BUPIVACAINE 0.25% 2.5MG/ML PF 10 ML VIAL ONE; -CAND1TAB17 PO; +CANDESARTAN PO; -CHOL400T; +CYCL10TA6 PO; +LEVO100T PO; -LEVO25TA PO; -LIDOCAINE HCL 1% MPF 5 ML VIAL ONE; -NAPR-1169 PO; +OMEG10007 PO; -OXYC1TAB3 PO; -SUMA6INJ PO; +SUMA6INJ SC; +TRAM-10 PO; +ZOLM1TAB3 PO
[2017-09-26 19:17] VITALS: TEMP 36.5; Ht 182.9 cm; Wt 97.6 kg
[2017-09-26] MEDS ORDERED: PROCHLORPERAZINE 5 MG/ML 2 ML VIAL IV STA (19:31)
[2017-09-26] MEDS ORDERED: DiphenhydrAMINE HCL 50 MG/ML VIAL IV STA (19:31)
[2017-09-26] MEDS ORDERED: KETOROLAC TROMETHAMINE 30 MG/ML VIAL IV STA (19:31)
[2017-09-26] MEDS ORDERED: ONDANSETRON INJ 2 MG/ML 2 ML VIAL IV STA (19:31)
[2017-09-26] MEDS ORDERED: SODIUM CHLORIDE 0.9% 1000ML 1,000 ML IV STA (19:31)
--- NOTE | 2017-09-26 19:46 | EMERGENCY ROOM VISIT NOTE ---
History Report prepared by Deuce: Elisabeth Ruvalcaba Under the Supervision of: Dr. Alpesh Fong M.D. First contact with patient: 19:20 Chief Complaint: HEADACHE Stated Complaint: MIGRAINE- EXTREME History of Present Illness The patient is a 32 year old male who presents to the Emergency Room with complaints of gradually worsening headache starting this morning. The headache is located in the back of his head and behind his eyes. He describes the pain as sharp. He has a history of migraines for the past 7 years. His notes that he gets headaches almost every day. He follows with neurology and is on Zomig, candesartan, and Imitrex. He received Botox injections a couple days ago. His typical migraine headache is in the front of his head. His headache today is worse than his typical migraines but he has been here several times for significant migraines. This started gradually and not suddenly. He tried taking Zomig today to some relief. He also took Imitrex this evening. He is feeling hot. He is slightly bothered by light, but less so than usual with his migraines. He denies any numbness, weakness, or chills. He denies any recent head injury or chemical exposures. Source of History: patient, spouse/significant other Onset: this morning Position: head Quality: sharp Timing: worsening Modifying Factors (Relieving): other (Zomig) Associated Symptoms: No chills, No weakness, No numbness Note: Pt reports light sensitivity, feeling hot. Review of Systems See HPI for pertinent positives & negatives. A total of 10 systems reviewed and were otherwise negative. Past Medical & Surgical Medical Problems: (1) Herniated disc (2) Migraines Old medical records were reviewed. Nurse's notes were reviewed and I agree with. Family History No pertinent family history Social History Smoking Status: Never Smoker Alcohol Use: occasionally Marital Status: Housing Status: lives with significant other Occupation Status: student Current/Historical Medications Scheduled Candesartan Cilexetil (Candesartan Cilexetil), 8 MG PO DAILY Fish Oil (Marion-3), 1 CAP PO BID Levothyroxine Sodium (Synthroid), 100 MCG PO QAM Zolmitriptan (Zomig), 1 SPRAY BU PRN UD [Botox Injection], Unknown Dose Q3MO Scheduled PRN Cyclobenzaprine Hcl (Flexeril), 10 MG PO TID PRN for Muscle Spasms Prochlorperazine Maleate (Compazine), 1 TAB PO Q6 PRN for Nausea or Vomiting Sumatriptan Succinate (Imitrex), 1 DOSE SC UD PRN for Migraine Tramadol (Ultram), 50 MG PO Q8H PRN for Pain Allergies Coded Allergies: No Known Allergies (Unverified , 09/23/17) Physical Exam Vital Signs Date Time Temp Pulse Resp B/P (MAP) Pulse Ox O2 Delivery O2 Flow Rate FiO2 09/26/17 20:43 91 18 126/84 100 Room Air 09/26/17 19:17 36.5 87 18 130/89 96 Room Air Physical Exam General: Mildly uncomfortable appearing young male in no acute distress. HEENT: Normal cephalic atraumatic. Pupils are equal round and reactive to light. Extraocular movements are intact. Oropharynx is pink with moist mucous membranes. No swelling of the mouth lips or tongue. Neck: Supple with a midline trachea. No meningeal signs or stiffness, no JVD or bruits. No Stridor. Chest: Clear to auscultation bilaterally. No wheezes or rhonchi. No increased work of breathing. Heart: regular rate and rhythm. Abdomen: Soft nontender, nondistended without rebound guarding or rigidity. Extremities: No cyanosis clubbing or edema. No calf tenderness or assymetry Spine/Back. Non tender to palpation. No CVA tenderness Skin: Good turgor without rashes. Neurologic exam: Cranial nerves two through 12 are intact. Motor and sensation are intact and symmetrical throughout. No tremor. Finger to nose intact. Medical Decision & Procedures Medications Administered Medications (Trade) Dose Ordered Sig/Mini Route Start Time Stop Time Status Last Admin Dose Admin Sodium Chloride 1,000 ml @ 999 mls/hr Q1H1M STAT IV 09/26/17 19:31 09/26/17 20:31 DC 09/26/17 20:00 999 MLS/HR Ketorolac Tromethamine (Toradol Inj) 30 mg NOW STAT IV 09/26/17 19:31 09/26/17 19:34 DC 09/26/17 20:01 30 MG Ondansetron HCl (Zofran Inj) 4 mg NOW STAT IV 09/26/17 19:31 09/26/17 19:34 DC 09/26/17 20:01 4 MG Prochlorperazine Edisylate (Compazine Inj) 10 mg NOW STAT IV 09/26/17 19:31 09/26/17 19:34 DC 09/26/17 20:01 10 MG Diphenhydramine HCl (Benadryl Inj) 50 mg NOW STAT IV 09/26/17 19:31 09/26/17 19:34 DC 09/26/17 20:00 50 MG ED Course 1920: Past medical records reviewed. The patient was evaluated in room A10, and a complete history and physical examination were performed. 1930: Benadryl Inj 50 mg IV, Compazine Inj 10 mg IV, Zofran Inj 4 mg IV, Toradol Inj 30 mg IV, Sodium Chloride 1000 ml @ 999 mls/hr IV. 2014: Upon reevaluation, the patient's headache has improved. I discussed the results and treatment plan with him. He verbalized agreement of the treatment plan. The patient was discharged home. Medical Decision Differentials include, but are not limited to; migraine, tension headache, meningitis, CVA, trauma, aneurysm. This patient comes in as described above he has a chronic history of headaches. He was placed in room A-10. This headache started slowly this morning and got progressively worse. With his medications at home it helped a little bit. He has had recent Botox which typically helps. On exam he has some photophobia and appears mildly uncomfortable but has no neurologic deficits nothing to suggest stroke or meningitis. IV access was established I reviewed his charts. We did give him his typical cocktail that he gets including 4 mg IV Zofran, Toradol 30 mg IV, Compazine 10 mgs IV, Benadryl 50 mg IV as well as 1 L IV normal reassessed. His is driving. His symptoms completely resolved and he feels better. I do not suspect this is anything but his typical migraine, I do not suspect subarachnoid hemorrhage or aneurysm. He has had multiple imaging the past and I did needs a CAT scan or MRI today. The patient and his agree. He is can follow-up with his neurologist or doctor this week. He should return if: increasing pain, headaches different than normal, worsening of symptoms, fever or chills, any new problems or concerns. He was happy the plan and discharged to home. Medication Reconcilliation Current Medication List: was personally reviewed by me Blood Pressure Screening Patient's blood pressure: Elevated blood pressure Blood pressure disposition: Elevated BP felt to be situational Impression Primary Impression: Migraine Scribe Attestation The scribe's documentation has been prepared under my direction and personally reviewed by me in its entirety. I confirm that the note above accurately reflects all work, treatment, procedures, and medical decision making performed by me. Departure Information Dispostion Home / Self-Care Referrals Hugo Ruiz M.D. (PCP) Forms HOME CARE DOCUMENTATION FORM, IMPORTANT VISIT INFORMATION Patient Instructions [facility] Additional Instructions Rest Drink plenty of fluids REturn if: worsening of symptoms, increasing pain, fever, headache differnt than typical, any new problems or concerns Follow-up with your doctor this week for recheck
[2017-09-26] MEDS ORDERED: CAND1TAB19 PO (19:59)
[2017-09-26] MEDS ORDERED: ZOLM5SPR BU (19:59)
[2017-09-26 20:43] VITALS: BP 126/84; PULSE 91; O2SAT 100
== END 2017-09-26 20:44 | disposition home or self-care (01) ==
LOC: C.EDB 19:15 → C.EDA 20:44
DX: G43.909 Migraine, unspecified, not intractable, without status migrainosus (principal); Z86.69 Personal history of other diseases of the nervous system and sense organs

== ENCOUNTER → 2017-10-01 | Day surgery (SDC) | payer OTHER ==
[2017-09-21 10:58] VITALS: Ht 182.9 cm; Wt 97.7 kg
[~2017-10-01] VITALS: Ht 182.9 cm; Wt 97.7 kg
[~2017-10-01] MED LIST changes: +BUPIVACAINE 0.25% 30 ML VIAL ONE; +CAND1TAB19 PO; -CANDESARTAN PO; +LIDOCAINE HCL 1% 20 ML VIAL ONE; -ZOLM1TAB3 PO; +ZOLM5SPR BU
--- NOTE | 2017-10-01 13:48 | [facility] Post Operative Brief Note ---
Immediate Operative Summary Operative Date Oct 01, 2017. Pre-Operative Diagnosis LUMBAR FACET ANTHROPATHY. CHRONIC LOW BACK PAIN. Post-Operative Diagnosis LUMBAR FACET ANTHROPATHY. CHRONIC LOW BACK PAIN. Procedure(s) Performed BILATERAL L2-3 FACET RADIO FREQUENCY DENERVATIONS Surgeon DR. Geeta JUNIOR Qc Analyst Surgeon(s) None Estimated Blood Loss 0 Findings Consistent with Post-Op Diagnosis Specimens None Anesthesia Type Local Complication(s) none Disposition Disposition:
--- NOTE | 2017-10-01 13:51 | Discharge Instructions ---
Discharge Instructions Date of Service Oct 01, 2017. Visit Reason for Visit: Lumbar Facet Joint Pain, Lumbar Disc Disease, Low Discharge Discharge Diagnosis / Problem: low back pain Discharge Goals Goal(s): Decrease discomfort, Improve function Activity Recommendations Activity Limitations: resume your previous activity Anesthesia . Post Anesthesia Instructions: If you have had General Anesthesia or IV Sedation: * Do not drive today. * Resume driving when surgeon permits. * Do not make important decisions or sign legal documents today. * Call surgeon for: 1. Temperature elevations greater than 101 degrees F. 2. Uncontrollable pain. 3. Excessive bleeding. 4. Persistent nausea and vomiting. 5. Medication intolerance (nausea, vomiting or rash). * For nausea and vomiting use only clear liquids such as: tea, soda, bouillon until nausea subsides, then gradually increase diet as tolerated. * If you have any concerns or questions, call your surgeon's office. If physician is unavailable and it is an emergency, call 911 or go to the nearest emergency room. . Diet Recommendations Recommended Home Diet: resume previous diet Procedures Procedures Performed: BILATERAL L2-3 FACET RADIO FREQUENCY DENERVATIONS Pending Studies Studies pending at discharge: no Medical Emergencies . Who to Call and When: Medical Emergencies: If at any time you feel your situation is an emergency, please call 911 immediately. . Non-Emergent Contact Non-Emergency issues call your: Specialist . . "Provider Documentation" section prepared by Ferny Lewis. .
[2017-10-01 14:10] VITALS: BP 119/79; PULSE 90; O2SAT 96
--- NOTE | 2017-10-01 14:28 | OPERATIVE REPORT ---
DATE OF OPERATION: 10/01/2017 PREOPERATIVE DIAGNOSES: Chronic low back pain, lumbar facet arthropathy L2-L3. POSTOPERATIVE DIAGNOSES: Chronic low back pain, lumbar facet arthropathy L2-L3. PROCEDURE: Bilateral L2-3 radiofrequency denervation. INDICATIONS: The patient is a 32-year-old white male that underwent medial branch blocks and had a change in intensity of his pain that occurred following the activity the next day, he notes that overall about a 50% improvement following the branch blocks. He presents today for denervation to provide him with similar relief on a long-term basis. PHYSICAL EXAMINATION: GENERAL: Pleasant male seated comfortably. MUSCULOSKELETAL: Lumbar paraspinal muscles were palpated. They were tender at L4-L5. He had normal motor and sensory exam. Negative seated straight leg raises. CONSENT: Verbal and written consent was obtained from the patient. Risks and benefits were reviewed. Risks include but are not limited to abscess, allergic reaction, nerve denervation and wishes to proceed. DESCRIPTION OF PROCEDURE: The patient was taken back to the special procedures room of the [facility]. He was maintained in a prone position. Backside was cleansed with Betadine x3 and a dry sterile dressing was applied. Fluoroscope was used to identify the L2-L3 transverse process regions. Overlying skin on the left side was anesthetized with 1.5 mL of lidocaine 1% with a 25-gauge 1.5-inch needle. A 22-gauge 10 cm Saritha needle contacted the bony target, which was uncomfortable for the patient. Sensory stimulation was noted at 0.2 or less volts for both sites. Motor stimulation provoked intense, localized paraspinal spasms and twitching, but nothing down the leg. He underwent an additional anesthetization with 1 mL lidocaine 1% x 2 at each site and then underwent denervation 80 degrees at 100 seconds x2 at the L2 level and 100 seconds x1 at the L3 level and an additional 30 seconds x1. He had a discomfort despite anesthetization and then followed up with 1 mL of bupivacaine 0.25 at each site. The right L2 transverse process junction and the right L3 transverse process junction were then fluoroscopically identified. Overlying skin anesthetized with 2 mL of lidocaine 1% with a 25-gauge 1.5-inch needle. A 22-gauge 10 cm [place] needle was passed down, contacting bone at each site. This was anesthetized with additional 1.5 mL of lidocaine 1% at the site. Sensory stimulation prior to the additional anesthetization provoked stimulation. Reproduction of pain is 0.2 volts and less and motor stimulation provoked robust paraspinal spasms, but not down the leg. He underwent denervation at 100 seconds, 80 degrees x2 at each site without problems or difficulties and then an additional 1 mL of bupivacaine 0.25% was injected into further anesthetized. DISPOSITION: He is taken into the discharge recovery area where he will be discharged home once discharge criteria have been met and he will follow up in the office in 4 weeks' time. I attest to the content of the Intraoperative Record and any orders documented therein. Any exceptions are noted below. DAINA
== END | disposition home or self-care (01) ==
LOC: X.SURG 12:19
PROVIDERS: ATTEND Physical Medicine & Rehabilitation
DX: M54.5 Low back pain (principal); M46.96 Unspecified inflammatory spondylopathy, lumbar region; G89.29 Other chronic pain; Z79.899 Other long term (current) drug therapy